=== PATIENT | male | born 1975 | race Caucasian/White ===

== ENCOUNTER → 2019-08-10 | Outpatient (CLI) | payer BC, SELFPAY ==
--- NOTE | 2019-08-10 | LES_PTH ---
PATIENT: HINA MUNROE LOC: [facility] U#:[id number] AGE/SX: 44/M ROOM: RE08/10/[address]: Dr. Rogers Diane MD : 1975 BED: DIS: 08/10/2019 SPEC #: [id number] RECD: 08/10/19 15:02 STATUS: RUSSELL VELIA #: [id number] JIGNESH: 08/10/19 00:[address]: Rogers Diane DEPT: SURGICAL PATHOLOGY RECD BY: Mukul Davenport ENTERED: 08/11/19 08:55 SP TYPE: Lesion OTHR DR: Dr. Hebert Dasilva MD Tissues: Skin of neck, NOS Procedures: Surgery Specimen Level IV HEADER OPERATION: Excision PRE-OP DIAGNOSIS: Suspicious skin lesion TISSUE SUBMITTED: Neck lesion MICROSCOPIC DIAGNOSIS Skin lesion of neck, biopsy: Consistent with seborrheic keratosis with reactive change and mild atypia, inflamed. See comment. AM:lucinda 08/14/19 COMMENT The lesion appears to have been completely excised in the planes examined. Case has been reviewed in consultation with Dr. Alvarenga who concurs with the above diagnosis. IDC:SJ MICROSCOPIC DESCRIPTION Slides are reviewed. GROSS DESCRIPTION Received in fixative is one container labeled with the patient's name and designated neck lesion. The specimen consists of a piece of lagos-white skin measuring 1 x 0.4 cm and up to 0.3 cm in thickness. The specimen is inked, serially sectioned and submitted entirely in one cassette. / TALIA:lucinda 08/11/19 TC:5 CPT: 24274
== END | disposition home or self-care (01) ==
LOC: LABSPEC 15:29
PROVIDERS: Referring Provider Family Medicine; Visit Provider Family Medicine
DX: L98.9 Disorder of the skin and subcutaneous tissue, unspecified (principal)
CPT/HCPCS: 88305

== ENCOUNTER → 2019-12-21 16:12 | Outpatient (CLI) | payer BC, SELFPAY ==
[2019-12-21 17:35] LABS: Anion Gap 7 (5-15); BUN 20 mg/dL (7-18); BUN/Creat Ratio 19.2 RATIO (10-20); Calcium,Total 8.7 mg/dL (8.5-10.1); Chloride 104 mmol/L (98-107); Cholesterol 239 mg/dL (200); Creatinine, Serum 1.04 mg/dL (0.70-1.30); EST Glomerular Filtration Rate 82 mL/min (>60); Est Glom Filt Rate - Afr Amer 99 mL/min (>60); Glucose 81 mg/dL (74-106); High Density Lipoprotein 58 mg/dL; Potassium 3.9 mmol/L (3.5-5.1); Sodium Level 140 mmol/L (136-145); Triglycerides 151 mg/dL; Very Low Density Lipoprotein 30 mg/dL (5-40)
[2019-12-21 17:37] LABS: Vitamin B12 379 pg/mL (211-911); Vitamin D,25 Hydroxy 30.5 ng/mL
[2019-12-26 16:09] LABS: Testosterone, Free 12.91 ng/dL (5.00-21.00)
[2019-12-27 05:09] LABS: Testosterone, % Free 3.18 % (1.50-4.20); Testosterone, Total 406 ng/dL (264-916)
== END ==
PROVIDERS: Referring Provider Family Medicine; Visit Provider Family Medicine
DX: R53.83 Other fatigue (principal); Z13.1 Encounter for screening for diabetes mellitus; Z13.220 Encounter for screening for lipoid disorders; N52.9 Male erectile dysfunction, unspecified
CPT/HCPCS: 36415; 80048; 80061; 82306; 82607; 84402; 84403; 84443

== ENCOUNTER → 2020-02-26 13:36 | Outpatient (CLI) | payer BC, SELFPAY ==
--- NOTE | 2020-02-26 14:47 | NEURO_ITS ---
NCS and/or EMG Patient Report Ordering Doctor: Rogers Diane DATE OF SERVICE: 02/26/20 Indication: Bilateral hand numbness. Symptoms are more severe on the right side. The sensory disturbance fluctuate depending on activity and is most commonly bothersome upon awakening from sleep. Evaluate for nerve entrapment. Findings: Nerve conduction studies were performed in the right and left upper extremities. The right median motor study recording the abductor pollicis brevis showed a normal amplitude, prolonged distal latency and normal conduction velocity. The right ulnar motor study recording the abductor digiti minimi showed a normal amplitude, normal distal latency and normal conduction velocity. Focal slowing w as present across the elbow. The right median sensory response recording digit two showed a slightly reduced amplitude, prolonged latency and slowed conduction velocity. The right ulnar sensory response recording digit five showed a normal amplitude, latency and conduction velocity. The right radial sensory response recording over the extensor snuff box showed a normal amplitude, latency and conduction velocity. The left median motor study recording the abductor pollicis brevis showed a normal amplitude, normal distal latency and normal conduction velocity. The left ulnar motor study recording the abductor digiti minimi showed a normal amplitude, normal distal latency and normal conduction velocity. No conduction block or focal slowing was present across the elbow. The left median sensory response recording digit two showed a slightly reduced amplitude, along latency and slowed conduction velocity. The left ulnar sensory response recording digit five showed a normal amplitude, latency and conduction velocity. The left radial sensory response recording over the extensor snuff box showed a normal amplitude, latency and conduction velocity. Right median-ulnar mixed palmar latencies showed a normal median latency compared to the ulnar. Left median-ulnar mixed palmar latencies showed a normal median latency compared to the ulnar. Needle EMG of the right upper extremity and cervical paraspinal muscles was performed. No denervation was seen in any muscle. In the right abductor pollicis brevis muscle, motor units were slightly large and long duration with normal recruitment. All other muscles demonstrated normal motor unit morphology, activation, and recruitment patterns. Limited needle EMG of the left abductor pollicis brevis muscle was performed. No active denervation was seen. Motor unit morphology, activation, and recruitment patterns were normal. Impression: This is an abnormal study. 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 The pathophysiology is predominantly demyelinating. These findings would be compatible with the clinical diagnosis of carpal tunnel syndrome. In addition, there is focal slowing on the ulnar motor response across the elbow, suggestive of mild impingement. Finally, there is no electrophysiologic evidence of a superimposed cervical radiculopathy in the right upper extremity. Andres Santiago D.O.
== END ==
PROVIDERS: PCP Family Medicine; Referring Provider Family Medicine; Visit Provider Family Medicine
DX: G56.00 Carpal tunnel syndrome, unspecified upper limb (principal)
CPT/HCPCS: 95885; 95886; 95913

== ENCOUNTER → 2023-02-12 | Outpatient (CLI) | payer BC, SELFPAY ==
[2023-02-12 15:53] LABS: Absolute Lymphocyte Count 2.88 X10^3/uL (0.83-4.51); Absolute Neutrophil Count 5.5 X10^3/uL (2.0-7.7); Basophil# 0.04 X10^3/uL; Basophil% 0.4 % (0-1); Eosinophil# 0.09 X10^3/uL; Hematocrit 50.5 % (40-54); Hemoglobin 16.7 g/dL (13.0-16.5); Lymphocyte # 2.88 X10^3/ul (0.83-4.51); Lymphocyte % 31.6 % (19-41); Mean Corp Hgb Conc 33.1 g/dL (32-36); Mean Corpuscular Hgb 31.6 pg (27.0-32.0); Mean Corpuscular Volume 95.5 fL (80-94); Mean Platelet Vol. 10.6 fl (6.2-12.0); Monocyte# 0.55 X10^3/uL; NRBC Flagged by Analyzer 0 % (0-5); Neutrophil # 5.52 X10^3/uL (2.7-7.7); Neutrophil % 60.7 % (47-70); Platelet Count 206 K/mm3 (150-450); RBC Distribution Width CV 12.2 % (11.6-14.6); RBC Distribution Width SD 42.9 fl (35.1-43.9); Red Blood Count 5.29 M/mm3 (4.6-6.2); White Blood Count 9.1 K/mm3 (4.4-11.0)
[2023-02-12 16:24] LABS: Anion Gap 7 (5-15); BUN 16 mg/dL (7-18); BUN/Creat Ratio 15.8 RATIO (10-20); Calcium,Total 8.6 mg/dL (8.5-10.1); Chloride 104 mmol/L (98-107); Cholesterol 247 mg/dL (200); Creatinine, Serum 1.01 mg/dL (0.70-1.30); EST Glomerular Filtration Rate 84 mL/min (>60); Est Glom Filt Rate - Afr Amer 101 mL/min (>60); Glucose 90 mg/dL (74-106); High Density Lipoprotein 68 mg/dL; Potassium 3.8 mmol/L (3.5-5.1); Sodium Level 138 mmol/L (136-145); Thyroid Stim Hormone (TSH) 2.22 uIU/mL (0.358-3.74); Triglycerides 131 mg/dL; Very Low Density Lipoprotein 26 mg/dL (5-40)
== END | disposition home or self-care (01) ==
PROVIDERS: PCP Family Medicine; Visit Provider Family Medicine
DX: Z00.00 Encounter for general adult medical examination without abnormal findings (principal)
CPT/HCPCS: 36415; 80048; 80061; 84403; 84443; 85025

== ENCOUNTER 2023-03-16 15:13 | Outpatient (RCR) | payer BC, SELFPAY | END 2023-04-04 23:59 | LOC: NS 15:13 | PROVIDERS: PCP Family Medicine; Referring Provider Family Medicine; Visit Provider Family Medicine | DX: Z71.3 Dietary counseling and surveillance (principal); E66.01 Morbid (severe) obesity due to excess calories; Z68.42 Body mass index [BMI] 45.0-49.9, adult | CPT/HCPCS: 97802 ==

== ENCOUNTER 2023-04-27 15:19 | Outpatient (RCR) | payer BC, SELFPAY | END 2023-05-05 23:59 | LOC: NS 15:19 | PROVIDERS: PCP Family Medicine; Referring Provider Family Medicine; Visit Provider Family Medicine | DX: Z71.3 Dietary counseling and surveillance (principal); E66.01 Morbid (severe) obesity due to excess calories; Z68.42 Body mass index [BMI] 45.0-49.9, adult | CPT/HCPCS: 97803 ==

== ENCOUNTER 2023-05-25 15:26 | Outpatient (RCR) | payer BC, SELFPAY | END 2023-06-03 23:59 | LOC: NS 15:26 | PROVIDERS: PCP Family Medicine; Referring Provider Family Medicine; Visit Provider Family Medicine | DX: Z71.3 Dietary counseling and surveillance (principal); E66.01 Morbid (severe) obesity due to excess calories; Z68.42 Body mass index [BMI] 45.0-49.9, adult | CPT/HCPCS: 97803 ==